=== PATIENT | male | born 1980 | race Caucasian/White ===

== ENCOUNTER 2017-05-06 16:01 | Inpatient (IN) | payer MEDICAID ==
[2017-05-07] MEDS ORDERED: oxyCODONE IR 5 MG TAB PO PRN (15:39)
[2017-05-07] MEDS ORDERED: BISACODYL 10 MG SUPP PR PRN (16:11)
[2017-05-07] MEDS ORDERED: MAGNESIUM HYDROXIDE 30 ML UDCUP PO PRN (16:11)
--- NOTE | 2017-05-07 16:25 | PDOREHIP ---
Admission [facility] - Admission - 3 Day Assessment Period Admission Date/Day 1: 05/07/17 Day 2: 05/08/17 Day 3: 05/09/17 - Active Diagnoses Comorbidities and Co-existing Conditions at Admission: 81044. None of the Above - Skin Conditions Unhealed Pressure Ulcer (1 or more/Stage 1 or >)-Admission: 0. No
[2017-05-07] MEDS: PROPRANOLOL HCL 20 MG TAB PO SCH ×3 (16:46→21:28)
[2017-05-07] MEDS: ADDERALL 20 MG TAB PO SCH ×3 (16:46→21:31)
[2017-05-07] MEDS: oxyCODONE IR 5 MG TAB PO PRN ×2 (17:19→22:22)
--- NOTE | 2017-05-07 17:19 | GHP ---
[f rep st] HISTORY AND PHYSICAL POST ADMISSION PHYSICIAN EVALUATION AND REHABILITATION TREATMENT PLAN DATE OF ADMISSION: 05/07/2017 DATE OF EVALUATION: 05/07/2017 TIME OF EVALUATION: 1545. REFERRING FACILITY: [facility]. REFERRING PHYSICIAN: [facility]. CONSULTING PHYSICIANS: Dr. Belcher, orthopedic surgeon. Additionally there was a psychiatry consult, but I have no information about it. REHABILITATION DIAGNOSIS: Debility, status post left femur and calcaneus fracture with nonweightbearing status on the left lower extremity. IMPAIRMENT GROUP: 14.9. ETIOLOGIC DIAGNOSIS: Other multiple trauma. DATE OF ONSET: 04/26/2017 DATE OF SURGERY: 05/04/2017 HISTORY OF PRESENT ILLNESS: Mr. Hernandez was base jumping in [facility]. There was an unexpected cher of wind and his parachute collapsed. He fell approximately 30-40 feet and landed on his left foot. He was taken to [place]. He was found to have a left femoral neck fracture, pelvic fractures including the left sacrum and the right superior and inferior pubic rami, T8-T10 compression fractures which were likely old, left thigh hematoma, and a left calcaneal fracture; he denied any head trauma or loss of consciousness. The femur fracture was treated with a femoral nail and the calcaneal fracture was treated with open reduction and internal fixation. He had pain control, including patient controlled analgesia. He was participating in therapies and ready for rehabilitation. STUDIES AND LABS IN THE HOSPITAL: Other than imaging, regarding fractures, head CT ruled out any intracranial pathology. PRECAUTIONS: He is a fall risk. He has orthopedic precautions of nonweightbearing on the left lower extremity. ACTIVE COMORBIDITIES: He has no active tier 1, tier 2, or tier 3 comorbidities. PAST MEDICAL HISTORY: 1. Prior femur fracture on the right, due to a snow boarding accident, and a nonunion of that fracture, with approximately 3 years of recovery. 2. Thumb dislocation. 3. Attention deficit hyperactivity disorder. PAST SURGICAL HISTORY: He has had prior repair of the right femur fracture. PREHOSPITAL MEDICATIONS: 1. Adderall 20 mg three times daily. 2. Propranolol 20 mg three times daily. ADMISSION MEDICATIONS: 1. Alprazolam 0.5 mg twice daily p.r.n. 2. Adderall 20 mg p.o. three times daily. 3. Cyclobenzaprine 10 mg p.o. three times daily p.r.n. 4. Enoxaparin 30 mg subcutaneous twice daily. 5. Oxycodone 5-20 mg p.o. q.4 hours p.r.n. 6. Propranolol 20 mg p.o. three times daily. ALLERGIES: There are no known drug allergies. FAMILY HISTORY: Noncontributory. PSYCHOSOCIAL HISTORY: He is a former smoker. He uses occasional alcohol. He denies other drugs of abuse; however, there is report from [facility] of cocaine use while in the ICU. He works full-time as a studio artist. He is able to discharge to his parent's house, where he can live on 1 level. REVIEW OF SYSTEMS: GI: Constipation has responded to laxatives. He reports that senna gave him stomach cramps. PAIN: Overall has been well controlled, as long as he stays ahead of the pain. HEENT: He reports a sensation of fullness in the left ear and says that he has reduced hearing in left ear. CONSTITUTIONAL: He denies fevers, chills. PULMONARY: Denies cough, dyspnea. Nausea, vomiting. He has a good appetite. : He denies dysuria or urinary frequency. He denies urinary retention. SKIN: He denies rash or breakdown. MUSCULOSKELETAL: Other than his current injuries, he denies joint pain or joint swelling. PSYCHIATRIC: He is in good spirits. Otherwise, a 10-point review of systems is negative. PHYSICAL EXAMINATION: VITAL SIGNS: Not yet available in the chart. His weight is 67.1 kg for a body mass index of 20.9. GENERAL: This is a well- nourished, well-developed man, appears his chronological age. Multiple tattoos. Cooperative and in no acute distress. HEENT: Extraocular movements are intact. Tympanic membranes and internal auditory canals are within normal limits bilaterally. Mucous membranes are moist. Dentition is in good condition. Airway is uncrowded, Mallampati class 1. There is scant posterior oropharyngeal mucus. NECK: Supple. HEART: There is regular rate and rhythm with no murmurs, rubs, or gallops. LUNGS: Clear to auscultation bilaterally. ABDOMEN: Soft, nontender, nondistended with normoactive bowel sounds and no hepatosplenomegaly. EXTREMITIES: There is no cyanosis or clubbing. There is mild edema to the left lower extremity. Radial and dorsalis pedis pulses are 2 + bilaterally. NEUROLOGIC: He is alert and oriented x3. Cranial nerves 2-12 are grossly intact. There is no focal weakness and sensation is intact to light touch. SKIN: He has surgical incision and sutures x2, approximately 3-4 cm each on the left lateral thigh, 1 proximal and 1 distal. They are clean, dry and intact. He has a surgical incision, which is sutured, around the lateral and posterior heel. Again they are clean dry and intact. CURRENT LEVEL OF FUNCTION, per the pre-admission screen. Regarding diet, feeding, and swallowing, he required set up. For grooming, he required set up. For bathing, he needed assistance. For dressing, he needed assistance. For toileting he needed assistance. For bed mobility, he required moderate assistance. For transfers, he required minimal assistance. He used a front- wheeled walker. His balance was poor. His endurance was poor, and it is noted that his ability to hop on the right lower extremity was impaired due to pain. Communication was within normal limits. Regarding cognition, the note is that he passed a TBI screen at [facility]. He was considered a fall risk. IMPRESSION: This patient is a 37-year-old man, who had an unfortunate base jumping accident and suffered pelvic fractures, a left femur fracture, and a left calcaneal fracture. He has undergone surgery, including femoral nailing and ORIF of the left calcaneus. He is nonweightbearing on the left lower extremity. He is appropriate for inpatient rehabilitation, where he has needs for physical and occupational therapy to optimize his mobility and activities of daily living. Though he reportedly passed a TBI screen and appears to be cognitively intact, it will be worthwhile to proceed with a speech therapy evaluation to fully evaluate his rehabilitation needs. He will benefit from nursing care regarding fall risk, bowel and bladder, skin integrity, and wound healing and medication administration. He will benefit from the attention of a physician regarding pain management, DVT risk, infection risk, and constipation. His goal is to complete rehabilitation stay and then discharge to his parent's home. For a safe discharge, it is expected that he will achieve standby assist to moderate independence with mobility, ADLs, cognition and pain control. He will be able to manage his medication. There will need to be family education for him to return to his father's house. He will have therapy with physical therapy, occupational therapy, and speech and language pathology on a modified schedule for 30-60 minutes per day for each discipline, and 5-7 days of the week. His expected duration of stay is 7- 10 days. It is anticipated that, upon discharge, he will continue to benefit from home health services, including occupational therapy, and physical therapy. ASSESSMENT AND PLAN: 1. Left femur and left calcaneal fractures, status post femoral nailing and ORIF of the calcaneus. Nonweightbearing on the left lower extremity. Physical and occupational therapy to optimize mobility and ADLs. 2. Possible concussion. Evaluation by Speech and Language Pathology. 3. Pain control. Reviewed his opiate use in the past 24 hours, including 8 mg of IV hydromorphone by the ADVICE NURSE pump, 60 mg of oral oxycodone and 30 mg of oral morphine, approximately equivalent to 170 mg of oral morphine equivalents, adjusting downward 25% for incomplete cross tolerance still gives morphine equivalence of approximately 130 mg. He had long-acting morphine from 15 twice daily in the hospital; will increase to 15 mg in the morning and 30 mg in the evening. Continue oxycodone on a p.r.n. basis at 5-20 mg. Will, however, increase the frequency from q.4 hours to q.3 hours. He will have serial assessment of pain control and medications will be adjusted as needed. 4. Constipation. He reports abdominal cramping with oral stimulant laxatives. We will prescribe polyethylene glycol daily, as well as milk of magnesia on a p.r.n. basis, bisacodyl suppository on a p.r.n. basis, and the availability of an enema. 5. Prophylaxis. He is at elevated risk for DVT. Continue enoxaparin 30 mg subcutaneous twice daily as ordered out of the hospital. 6. History of attention deficit hyperactivity disorder. Continue Adderall as well as propranolol. 7. Report of cocaine use in the hospital. This issue was discussed with the patient. Reportedly, in the hospital, he was not allowed visitors. He reassured the examiner that he will not be using illegal drugs while he is at [facility]. He will be monitored. 8. Dressing changes. Per the nurse to nurse report, he should have dressing changes every other day, and dressing changes have been ordered. He shows no signs or symptoms of infection or dehiscence at present. Follow-up: he has follow-up scheduled with [facility] on 05/12/17. Will discuss need for this appointment given complications of medical transport and loss of rehabilitation time. /[id number]/MODL MTDD
[2017-05-07] MEDS: morphINE SR 30 MG TAB PO SCH (20:59)
[2017-05-07] MEDS: ENOXAPARIN 30 MG/0.3 ML SYR SC SCH (21:00)
[2017-05-08] MEDS: ENOXAPARIN 30 MG/0.3 ML SYR SC SCH ×3 (01:27→20:34)
[2017-05-08] MEDS: oxyCODONE IR 5 MG TAB PO PRN ×6 (06:06→22:40)
[2017-05-08] MEDS: CYCLOBENZAPRINE 10 MG TAB PO PRN ×2 (07:43→17:22)
[2017-05-08] MEDS: ADDERALL 20 MG TAB PO SCH ×3 (07:43→15:51)
[2017-05-08] MEDS: PROPRANOLOL HCL 20 MG TAB PO SCH ×3 (07:44→20:52)
[2017-05-08] MEDS: morphINE SR 15 MG TAB PO SCH (07:44)
[2017-05-08] MEDS: POLYETHYLENE GLYCOL 3350 17 GM PKT PO SCH (09:16)
--- NOTE | 2017-05-08 11:06 | SOAPPROG ---
SOAP Progress Note Assessment/Plan: Assessment: 1. Left femur and left calcaneal fractures. Status post left femoral nailing and ORIF left calcaneus. Nonweightbearing left lower extremity. Advised patient that we less of the movement and tossing about while in bed will probably help decrease his pain level as he tends to twist and turn repetitively , several times a per minute. 2. Possible concussion speech therapy to follow 3. Pain control. Reports pain is well controlled at this time. No recommended changes. 4. Constipation. Patient counseled to drink plenty of water. Should have additional fiber as long as he continues on opioid analgesics. Constipation should dissipate as his activity level and hydration increases. 5. DVT prophylaxis continue enoxaparin 30 mg subcutaneous twice daily. 6. Attention deficit hyperactivity disorder-patient request Adderall and propranolol to be changed to p.r.n. and an order will be written for this today. 7. Wound care-left hip incision looks good without drainage or erythema. Plan: 05/08/17 11:09 Subjective: H he reports he is having significant left thigh pain secondary to recent ORIF. He does have some foot discomfort secondary to recent calcaneal fracture. He notes adequate pain control. He also reports a right-sided lower rib pain. He has requested to nursing staff to change his Adderall and propranolol 2 p.r.n.. He takes these for attention deficit hyperactivity disorder. He does not report headache, dizziness or visual disturbance. He denies chest pain or shortness of breath. He denies low back pain. He reports continence of bowel and bladder. Objective: Vital Signs Temp Pulse Resp BP Pulse Ox 36.9 C 79 18 111/64 93 05/08/17 07:56 05/08/17 07:56 05/08/17 07:56 05/08/17 07:56 05/08/17 07:56 05/07/17 05/08/17 05/09/17 05:59 05:59 05:59 Intake Total 240 360 Output Total 800 Balance -560 360 Physical Exam - Physical Exam General Appearance: WD/WN, alert, no apparent distress, thin, other (On increased of movement noted while lying in bed with him constantly shifting positions in twisting body angle to the right.) EENT: PERRL/EOMI Neck: non-tender, full range of motion, supple Respiratory: lungs clear, normal breath sounds, other (Has tenderness right anterior rib cage ribs 06/13/11), No chest non-tender Cardiac/Chest: No edema Abdomen: normal bowel sounds, non-tender, soft Skin: other (Left femur fracture is healing well. Slight induration without erythema left lateral thigh. Nontender to palpation.) Neuro/Psych: alert, normal mood/affect, oriented x 3, abnormal cerebellar tests , motor weakness (Left lower extremity secondary to recent ORIF), No cognition abnormalities, No speech abnormalities ICD10 Worksheet Patient Problems: Problems Problem Status Onset Left displaced femoral neck fracture Acute S/P ORIF (open reduction internal fixation) fracture Acute
[2017-05-08 11:25] LABS: % IMMATURE GRANULYOCYTES 0.6 % (0.0-1.1); ABSOLUTE IMMATURE GRANULOCYTES 0.06 10^3/uL (0.00-0.10); ADD DIFF? NO; ADD MORPH? NO; ADD SCAN? NO; ATYPICAL LYMPHOCYTE FLAG 0 (0-99); FRAGMENT RBC FLAG 0 (0-99); HEMATOCRIT 29.1 % (40.0-51.0); HEMOGLOBIN 9.2 g/dL (13.7-17.5); LEFT SHIFT FLG 0 (0-99); LIPEMIA HEMOLYSIS FLAG 80 (0-99); MEAN CELL HEMOGLOBIN 28.8 pg (27.9-34.1); MEAN CELL HEMOGLOBIN CONCENTR. 31.6 g/dL (32.4-36.7); MEAN CELL VOLUME 90.9 fL (81.5-99.8); MEAN PLATELET VOLUME 8.4 fL (8.7-11.7); PLATELET CLUMPS FLAG 0 (0-99); RED CELL DISTRIBUTION WIDTH 14.4 % (11.5-15.2)
[2017-05-08 11:36] LABS: ANION GAP 15 mEq/L (8-16); CALCIUM 10.1 mg/dL (8.5-10.4); CARBON DIOXIDE 28 mEq/l (22-31); CHLORIDE 95 mEq/L (97-110); CREATININE 0.9 mg/dL (0.7-1.3); GLOMERULAR FILTRATION RATE > 60; POTASSIUM 4.5 mEq/L (3.5-5.2); SODIUM 138 mEq/L (134-144)
[2017-05-08 11:55] LABS: PLATELET COUNT 1029 10^3/uL (150-400)
[2017-05-08 12:10] LABS: PLATELET ESTIMATE INCREASED (ADEQ)
[2017-05-08 13:04] LABS: GLUCOSE 90 mg/dL (70-100)
[2017-05-08] MEDS: morphINE SR 30 MG TAB PO SCH (20:42)
[2017-05-09] MEDS: oxyCODONE IR 5 MG TAB PO PRN ×6 (02:57→20:52)
[2017-05-09] MEDS: ADDERALL 20 MG TAB PO SCH ×3 (07:45→16:31)
[2017-05-09] MEDS: morphINE SR 15 MG TAB PO SCH (07:46)
[2017-05-09] MEDS: POLYETHYLENE GLYCOL 3350 17 GM PKT PO SCH (07:47)
[2017-05-09] MEDS: PROPRANOLOL HCL 20 MG TAB PO SCH ×3 (07:47→21:01)
[2017-05-09] MEDS: ENOXAPARIN 30 MG/0.3 ML SYR SC SCH ×2 (07:47→20:53)
--- NOTE | 2017-05-09 11:29 | SOAPPROG ---
SOAP Progress Note Assessment/Plan: Assessment: 1. Left femur and left calcaneal fractures. Status post left femoral nailing and ORIF left calcaneus. Nonweightbearing left lower extremity. Advised patient that we less of the movement and tossing about while in bed will probably help decrease his pain level as he tends to twist and turn repetitively , several times a per minute. 2. Possible concussion speech therapy to follow 3. Pain control. Reports pain is well controlled at this time. No recommended changes. 4. Constipation. Patient counseled to drink plenty of water. Should have additional fiber as long as he continues on opioid analgesics. Constipation should dissipate as his activity level and hydration increases. 5. DVT prophylaxis continue enoxaparin 30 mg subcutaneous twice daily. 6. Attention deficit hyperactivity disorder-patient request Adderall and propranolol to be changed to p.r.n. and an order will be written for this today. 7. Wound care-CLEAN LEFT FOOT INCISION WITH HALF-STRENGTH NORMAL SALINE, APPLY ANTIBIOTIC OINTMENT. REAPPLY STERI-STRIPS. 8. RIB PAIN-WILL BEGIN LIDODERM PATCH 12 HOURS ON 12 HOURS OFF RIGHT LOWER ANTEROLATERAL RIB CAGE. 9. CONGESTION-subjective complaints that HIS LEFT EAR FEELS BLOCKED ACCORDING TO HIM. WILL BEGIN ASPIRIN Q.6 HOURS P.R.N. CONGESTION 1 SQUIRT EACH NOSTRIL. Plan: 05/08/17 11:09 05/09/17 11:31 Subjective: HE REPORTS CURRENT PAIN LEVEL IS 5-SLIT 6/10 BUT GOES UP TO 10/10. HE REPORTS HIS CURRENT OPIOID SCHEDULE IS ADEQUATE AND HE DOES NOT WANT INCREASED PAIN MEDICATIONS DUE TO FEAR OF BEING OVER SEDATED. HE DOES REPORT SOME PAIN IN THE RIGHT LOWER ANTERIOR RIB CAGE. HE ALSO REPORTS THAT HIS LEFT EAR FEELS THE BLOCKED. Objective: Vital Signs Temp Pulse Resp BP Pulse Ox 36.8 C 90 18 123/75 H 94 05/09/17 07:38 05/09/17 07:38 05/09/17 07:38 05/09/17 07:38 05/09/17 07:38 Laboratory Results 05/08/17 09:50 05/08/17 09:50 05/08/17 05/09/17 05/10/17 05:59 05:59 05:59 Intake Total 240 1215 236 Output Total 800 1800 Balance -560 -585 236 Physical Exam - Physical Exam General Appearance: WD/WN, alert, no apparent distress Neck: non-tender, supple Respiratory: chest non-tender, lungs clear, normal breath sounds Abdomen: normal bowel sounds, non-tender, soft, other (NO SUPRAPUBIC TENDERNESS. ) Skin: normal color, warm/dry, other (LEFT HEEL INCISION OF BLOODY DRAINAGE, NO ERYTHEMA NO TRACKING. NO PURULENT DISCHARGE.) Extremities: No normal range of motion, No swelling, No Kimani's sign (DECREASED ACTIVE LEFT HIP FLEXION, KNEE FLEXION DUE TO THE LEFT HIP GIRDLE PAIN.) Neuro/Psych: alert, normal mood/affect (A LEFT PELVIC FRACTURE.), oriented x 3, motor weakness (LEFT LOWER EXTREMITY WEAKNESS SECONDARY TO PAIN) ICD10 Worksheet Patient Problems: Problems Problem Status Onset Left displaced femoral neck fracture Acute S/P ORIF (open reduction internal fixation) fracture Acute
[2017-05-09] MEDS ORDERED: OXYMETAZOLINE 30 ML NASAL SPRAY EACHNARE ONE (11:33)
[2017-05-09] MEDS: CYCLOBENZAPRINE 10 MG TAB PO PRN ×2 (12:00→21:27)
[2017-05-09] MEDS: LIDOCAINE 5% 1 EA PATCH TD SCH (12:01)
[2017-05-09] MEDS: morphINE SR 30 MG TAB PO SCH (20:48)
[2017-05-09] MEDS: PATCH REMOVAL 1 EA PATCH TD SCH (21:01)
[2017-05-10] MEDS: oxyCODONE IR 5 MG TAB PO PRN ×6 (03:47→20:30)
[2017-05-10] MEDS: PROPRANOLOL HCL 20 MG TAB PO SCH (07:27)
[2017-05-10] MEDS: ADDERALL 20 MG TAB PO SCH (07:28)
[2017-05-10] MEDS: morphINE SR 15 MG TAB PO SCH (08:58)
[2017-05-10] MEDS: LIDOCAINE 5% 1 EA PATCH TD SCH (08:58)
[2017-05-10] MEDS ORDERED: PROPRANOLOL HCL 20 MG TAB PO PRN (09:01)
[2017-05-10] MEDS ORDERED: ADDERALL 20 MG TAB PO PRN (09:01)
[2017-05-10] MEDS: POLYETHYLENE GLYCOL 3350 17 GM PKT PO SCH (09:04)
[2017-05-10] MEDS: ENOXAPARIN 30 MG/0.3 ML SYR SC SCH ×2 (09:05→20:20)
--- NOTE | 2017-05-10 09:26 | SOAPPROG ---
SOAP Progress Note Assessment/Plan: Assessment: 1. Left femur and left calcaneal fractures, status post femoral nailing and ORIF of the calcaneus. Nonweightbearing on the left lower extremity. Physical and occupational therapy to optimize mobility and ADLs. 2. Possible concussion. Evaluation by Speech and Language Pathology. 3. Pain control. Reviewed his opiate use in the past 24 hours, including 8 mg of IV hydromorphone by the TRACTION POWER ENGINEER pump, 60 mg of oral oxycodone and 30 mg of oral morphine, approximately equivalent to 170 mg of oral morphine equivalents, adjusting downward 25% for incomplete cross tolerance still gives morphine equivalence of approximately 130 mg. He had long-acting morphine from 15 twice daily in the hospital; will increase to 15 mg in the morning and 30 mg in the evening. Continue oxycodone on a p.r.n. basis at 5-20 mg. Will, however, increase the frequency from q.4 hours to q.3 hours. He will have serial assessment of pain control and medications will be adjusted as needed. 4. Constipation. He reports abdominal cramping with oral stimulant laxatives. We will prescribe polyethylene glycol daily, as well as milk of magnesia on a p.r.n. basis, bisacodyl suppository on a p.r.n. basis, and the availability of an enema. 5. Prophylaxis. He is at elevated risk for DVT. Continue enoxaparin 30 mg subcutaneous twice daily as ordered out of the hospital. 6. History of attention deficit hyperactivity disorder. Continue Adderall as well as propranolol. 7. Report of cocaine use in the hospital. This issue was discussed with the patient. Reportedly, in the hospital, he was not allowed visitors. He reassured the examiner that he will not be using illegal drugs while he is at [facility]. He will be monitored. 8. Dressing changes. Per the nurse to nurse report, he should have dressing changes every other day, and dressing changes have been ordered. He shows no signs or symptoms of infection or dehiscence at present. Follow-up: he has follow-up scheduled with [facility] on 05/12/17. Will discuss need for this appointment given complications of medical transport and loss of rehabilitation time. 05/10/17 09:26 Objective: Vital Signs Temp Pulse Resp BP Pulse Ox 36.4 C 84 12 105/72 96 05/10/17 07:23 05/10/17 07:23 05/10/17 07:23 05/10/17 07:23 05/10/17 07:23 Laboratory Results 05/08/17 09:50 05/08/17 09:50 05/09/17 05/10/17 05/11/17 05:59 05:59 05:59 Intake Total 1215 690 Output Total 1800 Balance -581 690 ICD10 Worksheet Patient Problems: Problems Problem Status Onset Left displaced femoral neck fracture Acute S/P ORIF (open reduction internal fixation) fracture Acute
--- NOTE | 2017-05-10 10:52 | SOAPPROG ---
SOAP Progress Note Assessment/Plan: Assessment: * Left femur and left calcaneal fractures, status post femoral nailing and ORIF of the calcaneus. Nonweightbearing on the left lower extremity. Initial FIM 96 on 05/10/17. Ambulated 150', climbed 2 streps, crutches, Set-up/SBA or I for ADLs. Progress to I in room today. Continue physical and occupational therapy to optimize mobility and ADLs. * Pain control. Used opiates in the hospital approximately equivalent to 170 mg of oral morphine equivalents. Prescribed morphine SR 15 mg in the morning and 30 mg in the evening on admission 05/07/2017.. Continued oxycodone on a p.r.n. basis at 5-20 mg q.3 hours. Used 120 mg of oxycodone yesterday 05/09/2017 increase morphine SR 230 mg twice daily on 05/10/2017. * Constipation. He reports abdominal cramping with oral stimulant laxatives. Responding to polyethylene glycol daily. No commando knee jerk, bisacodyl suppository and enema are available. Chronic/stable conditions: * Prophylaxis. He is at elevated risk for DVT. Continue enoxaparin 30 mg subcutaneous twice daily as ordered out of the hospital. * History of attention deficit hyperactivity disorder. Per his request, change Adderall and propranolol to PRN. * Report of cocaine use in the hospital. This issue was discussed with the patient. Reportedly, in the hospital, he was not allowed visitors. He reassured the examiner that he will not be using illegal drugs while he is at [facility]. He will be monitored. * Dressing changes. Per the nurse to nurse report, he should have dressing changes every other day, and dressing changes have been ordered. He shows no signs or symptoms of infection or dehiscence at present. * No cognitive impairment on CHROME TANNER testing. Attended staffing, 15 minutes. Discussed with case management, nursing, dietitian, PT, OT, CHROME TANNER. He wants to discharge home to his own apartment. He may benefit from some assistance initially. Discharge 05/12/2017. Plan for outpatient physical therapy once weight-bearing is advanced. Follow-up: he has follow-up scheduled with [facility] on . 05/10/17 11:55 Subjective: Complains of left leg pain and feels he is due for another dose of oxycodone. Bowels are moving. Physical therapy reports he may be ready to be independent in his room. Reports difficulty attaining sleep last night. Had a dose of oxycodone 5 and have to 6 hours after HS. Objective: Vital Signs Temp Pulse Resp BP Pulse Ox 36.4 C 84 12 105/72 96 05/10/17 07:23 05/10/17 07:23 05/10/17 07:23 05/10/17 07:23 05/10/17 07:23 Laboratory Results 05/08/17 09:50 05/08/17 09:50 05/09/17 05/10/17 05/11/17 05:59 05:59 05:59 Intake Total 1215 690 800 Output Total 1800 1075 Balance -585 690 -275 - Time Spent With Patient Time Spent With Patient: Greater than 35 minutes floor time today, including more than 50% of time in coordination of care during staffing meeting, and counseling patient. Physical Exam - Physical Exam General Appearance: WD/WN, alert, no apparent distress Respiratory: No respiratory distress, No accessory muscle use Skin: normal color, warm/dry Neuro/Psych: no motor/sensory deficits, alert, normal mood/affect, oriented x 3 ICD10 Worksheet Patient Problems: Problems Problem Status Onset Left displaced femoral neck fracture Acute S/P ORIF (open reduction internal fixation) fracture Acute
[2017-05-10] MEDS ORDERED: morphINE SR 15 MG TAB PO ONE (11:53)
[2017-05-10] MEDS: OXYMETAZOLINE 30 ML NASAL SPRAY EACHNARE SCH ×2 (16:17→20:31)
--- NOTE | 2017-05-10 18:13 | WOCRNPDOC ---
WOCRN Advanced Assessment Note - Skin Integrity Problem, Advanced Assess Left Posterior Ankle Surgical Wound/Incision Dressing Type: Adaptic, Gauze Dressing Description: Intact, Shadowed Closure Description: Sutures (x9), Approximated Exudate Amount: Minimal Exudate Characteristic(s): Bloody Integumentary Issue Intervention: Dressing Changed Jake Wound Tissue: Erythema (significant amount of erythema extending to anterior ankle from incision site), Macerated Jake Wound Swelling: Severe Site Measurement - Head-to-Toe Length X Width X Depth (cm): 6x4.5x0 Skin Integrity Problem Comment: Surgical incision site in the shape of a backwards L from posterior heel to distal lateral malleolus. The gauze was quite satruated with blood and had been sitting on the skin macerating the incisions. The area was cleaned with ns. Skin prep applied jake wound. Aquacel Ag+ was cut to fit over incisions and secured in place with medipore tape. This dressing with help absorb the drainage, and dispense silver as it does so to reduce bacterial load. The rest of the foot was padded with mepilex transfer before placing it back in the splint. Then it was wrapped with Kerlix and then the splint wrapped on with more kerlix and secured with Escobar. Ebonie ALVARES in room for care. Wound care will check in next week.
[2017-05-10 19:36] VITALS: RESP 16
[2017-05-10] MEDS: morphINE SR 30 MG TAB PO SCH (20:20)
[2017-05-11] MEDS: PATCH REMOVAL 1 EA PATCH TD SCH ×2 (00:54→18:35)
[2017-05-11] MEDS: oxyCODONE IR 5 MG TAB PO PRN ×6 (02:27→21:54)
[2017-05-11] MEDS: CYCLOBENZAPRINE 10 MG TAB PO PRN ×2 (05:18→15:58)
[2017-05-11] MEDS: POLYETHYLENE GLYCOL 3350 17 GM PKT PO SCH (08:11)
[2017-05-11] MEDS: morphINE SR 30 MG TAB PO SCH ×2 (08:11→21:01)
[2017-05-11] MEDS: ENOXAPARIN 30 MG/0.3 ML SYR SC SCH ×2 (08:12→21:01)
[2017-05-11] MEDS: OXYMETAZOLINE 30 ML NASAL SPRAY EACHNARE SCH ×2 (08:12→21:04)
[2017-05-11] MEDS: LIDOCAINE 5% 1 EA PATCH TD SCH (08:18)
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
[2017-05-12] MEDS: oxyCODONE IR 5 MG TAB PO PRN ×6 (01:05→21:30)
[2017-05-12] MEDS: ALPRAZolam 0.5 MG TAB PO PRN ×2 (01:07→21:30)
[2017-05-12] MEDS: CYCLOBENZAPRINE 10 MG TAB PO PRN ×2 (05:54→15:08)
[2017-05-12] MEDS: morphINE SR 30 MG TAB PO SCH ×2 (08:31→20:59)
[2017-05-12] MEDS: POLYETHYLENE GLYCOL 3350 17 GM PKT PO SCH (09:20)
[2017-05-12] MEDS: ENOXAPARIN 30 MG/0.3 ML SYR SC SCH ×2 (09:21→20:59)
[2017-05-12] MEDS: OXYMETAZOLINE 30 ML NASAL SPRAY EACHNARE SCH ×2 (09:21→21:01)
[2017-05-12] MEDS: LIDOCAINE 5% 1 EA PATCH TD SCH (09:22)
--- NOTE | 2017-05-12 13:19 | SOAPPROG ---
SOAP Progress Note Assessment/Plan: Assessment: * Left femur and left calcaneal fractures, status post femoral nailing and ORIF of the calcaneus. Nonweightbearing on the left lower extremity. Initial FIM 96 on 05/10/17. Ambulated 150', climbed 2 steps, crutches, Set-up/SBA or I for ADLs. Progress to I in room 05/10/2017. Continue physical and occupational therapy to optimize mobility and ADLs. * Pain control. Used opiates in the hospital approximately equivalent to 170 mg of oral morphine equivalents. Prescribed morphine SR 15 mg in the morning and 30 mg in the evening on admission 05/07/2017. Continued oxycodone on a p.r.n. basis at 5-20 mg q.3 hours. Used 120 mg of oxycodone each day. Increased morphine SR 230 mg twice daily on 05/10/2017. * Constipation. He reports abdominal cramping with oral stimulant laxatives. Responding to polyethylene glycol daily. No commando knee jerk, bisacodyl suppository and enema are available. * Left ear hearing loss. Has not responded to decongestant. Confirmed by audiology screening per speech therapy. Follow up after discharge with textile technologist. Chronic/stable conditions: * Prophylaxis. He is at elevated risk for DVT. Continue enoxaparin 30 mg subcutaneous twice daily as ordered out of the hospital; change to 40 mg SC QD for simpler dosing at home. Continue for 3 weeks after fracture unless Orthopedics prescribed differently at follow-up. * History of attention deficit hyperactivity disorder. Per his request, change Adderall and propranolol to PRN. * Report of cocaine use in the hospital. This issue was discussed with the patient. Reportedly, in the hospital, he was not allowed visitors. He reassured the examiner that he will not be using illegal drugs while he is at [facility]. He will be monitored. * Dressing changes. Per the nurse to nurse report, he should have dressing changes every other day, and dressing changes have been ordered. He shows no signs or symptoms of infection or dehiscence at present. * No cognitive impairment on SPEECH AND LANGUAGE TUTOR testing. He wants to discharge home to his own apartment. Discharge 05/13/2017. Plan for outpatient physical therapy once weight-bearing is advanced. Nusae visit QOD for dressing changes L heel. Follow-up: he has follow-up scheduled with [facility] on . Follow-up with ENT re hearing loss L ear. 05/12/17 13:14 Subjective: No complaints. Pain adequately controlled. Denies fevers, chills, cough, dyspnea. Enthusiastic for going home tomorrow. Objective: Vital Signs Temp Pulse Resp BP Pulse Ox 36.5 C 75 16 109/61 95 05/12/17 06:32 05/12/17 06:32 05/12/17 06:32 05/12/17 06:32 05/12/17 06:32 Laboratory Results 05/08/17 09:50 05/08/17 09:50 05/11/17 05/12/17 05/13/17 05:59 05:59 05:59 Intake Total 2340 2066 Output Total 1075 800 Balance 1265 1266 Physical Exam - Physical Exam General Appearance: WD/WN, alert, no apparent distress Respiratory: No respiratory distress, No accessory muscle use Skin: normal color, warm/dry Neuro/Psych: no motor/sensory deficits, alert, normal mood/affect, oriented x 3 ICD10 Worksheet Patient Problems: Problems Problem Status Onset Left displaced femoral neck fracture Acute S/P ORIF (open reduction internal fixation) fracture Acute
--- NOTE | 2017-05-12 20:03 | WOCRNPDOC ---
WOCRN Advanced Assessment Note - Skin Integrity Problem, Advanced Assess Left Posterior Ankle Surgical Wound/Incision Dressing Type: Other Other Dressing Type: Hydrofiber (aquacel) Dressing Description: Clean/Dry, Intact Closure Description: Sutures, Approximated (80%), Not Approximated (20% ) Exudate Amount: Minimal Exudate Characteristic(s): Bloody Integumentary Issue Intervention: Visualized Under Dressing Brenda Wound Tissue: Macerated (only around small unapproximated area where wound is bleeding) Brenda Wound Swelling: Moderate Site Odor: None Skin Integrity Problem Comment: Maceration greatly improved since Wednesday assessment. It is now confined to the small area of the distal incision site where it is bleeding. Patient was very tender and even the slightest touch of the q tip made patient jump and pull away. Wound care was unable to assess fully whether there was any depth to the unapproximated area. Dressing change orders are appropriate and do not need editing at this time. Wound care would advise alerting surgeon of the continued bleeding along distal incision. Nasima Rn in room for care.
[2017-05-12] MEDS: PATCH REMOVAL 1 EA PATCH TD SCH (21:03)
[2017-05-13] MEDS: morphINE SR 30 MG TAB PO SCH (08:12)
[2017-05-13] MEDS: POLYETHYLENE GLYCOL 3350 17 GM PKT PO SCH (08:13)
[2017-05-13] MEDS: LIDOCAINE 5% 1 EA PATCH TD SCH (08:13)
[2017-05-13] MEDS: OXYMETAZOLINE 30 ML NASAL SPRAY EACHNARE SCH (08:14)
[2017-05-13] MEDS ORDERED: ENOXAPARIN 40 MG/0.4 ML SYR SC SCH (09:00)
[2017-05-13] MEDS: oxyCODONE IR 5 MG TAB PO PRN (09:27)
--- NOTE | 2017-05-13 10:53 | PDOREHIP ---
Admission [facility] - Admission - 3 Day Assessment Period Admission Date/Day 1: 05/07/17 Day 2: 05/08/17 Day 3: 05/09/17 - Skin Conditions Unhealed Pressure Ulcer (1 or more/Stage 1 or >)-Admission: 0. No Discharge [facility] - Discharge - 3 Day Assessment Period 2 Days Prior to Anticipated Discharge Date: 05/11/17 1 Day Prior to Anticipated Discharge Date: 05/12/17 Anticipated Discharge Date: 05/13/17 - Discharge Skin Conditions Unhealed Pressure Ulcer (1 or more/Stage 1 or >)-Discharge: 0. No
[2017-05-13 11:05] VITALS: BP 116/70; PULSE 95; TEMP 98.6; O2SAT 95
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
== END 2017-05-13 12:34 | disposition home or self-care (01) | DRG 561 ==
LOC: BREH 05-07 15:10
PROVIDERS: ADMIT Internal Medicine; ATTEND Internal Medicine
PROC: F0636ZZ Communicative/Cognitive Integration Skills Treatment of Neurological System - Whole Body (ICD-10-PCS; principal; 2017-05-07)
PROC: F07M3ZZ Motor Function Treatment of Musculoskeletal System - Whole Body (ICD-10-PCS; principal; 2017-05-07)
DX: S72.002D Fracture of unspecified part of neck of left femur, subsequent encounter for closed fracture with routine healing (principal); S32.511D Fracture of superior rim of right pubis, subsequent encounter for fracture with routine healing; S32.19XD Other fracture of sacrum, subsequent encounter for fracture with routine healing; S92.002D Unspecified fracture of left calcaneus, subsequent encounter for fracture with routine healing; Y93.33 Activity, BASE jumping; W17.89XA Other fall from one level to another, initial encounter; K59.00 Constipation, unspecified; S06.0X0D Concussion without loss of consciousness, subsequent encounter; F90.9 Attention-deficit hyperactivity disorder, unspecified type; F14.90 Cocaine use, unspecified, uncomplicated; H90.12 Conductive hearing loss, unilateral, left ear, with unrestricted hearing on the contralateral side
CPT/HCPCS: 92507-GN; 92522-GN; 97110-GP; 97116-GP; 97162-GP; 97166-GO; 97530-GO; 97530-GP; 97535-GO; 97537-GO; J1650